=== PATIENT | female | born 1965 | race Two or more races ===

== ENCOUNTER 2022-08-05 13:15 | Emergency (ER) | payer MEDICAID, OTHER ==
[~2022-08-05] VITALS: Ht 167.6 cm; Wt 59.1 kg
[2022-08-05 13:19] VITALS: BP 0/0
[2022-08-05] MEDS ORDERED: SODIUM BICARBONATE 8.4 % INJ 50ML VIAL IV ONE (13:36)
[2022-08-05] MEDS ORDERED: EPINEPHrine HCL 1 MG/10 ML SYRG ONE (13:48)
== END 2022-08-05 13:50 ==
LOC: EDBD 13:15 → ER 13:15
DX: I46.9 Cardiac arrest, cause unspecified (principal); N18.9 Chronic kidney disease, unspecified; Z99.2 Dependence on renal dialysis
CPT/HCPCS: 31500; 36556; 92950; 99291; J0171